=== PATIENT | male | born 1990 | race Two or more races ===

== ENCOUNTER 2018-11-04 03:22 | Emergency (ER) | payer SELFPAY ==
[~2018-11-04] VITALS: Ht 182.9 cm; Wt 93.0 kg
--- NOTE | 2018-11-04 03:22 | NUR ---
CPR IN PROGRESS DURING ARRIVAL, SEE CODE SHEET.
[2018-11-04] MEDS ORDERED: FEE EMEERGENCY 1 MIN EA MC ONE (03:25)
[2018-11-04] MEDS ORDERED: EPINEPHRINE (1:10,000) SYRINGE 1 MG/10 ML DISP.SYRIN IVP ONE (03:25)
[2018-11-04 05:34] VITALS: BP 0/0
== END 2018-11-04 05:35 | disposition expired ==
LOC: ER 03:24
DX: I46.9 Cardiac arrest, cause unspecified (principal)
CPT/HCPCS: 82962; 92950; 99285; A4606; J0171